=== PATIENT | male | born 1950 | race Caucasian/White ===

== ENCOUNTER 2019-12-25 10:57 | Emergency (ER) | payer OTHER, SELFPAY ==
[2019-12-25 10:58] VITALS: BP 165/73; PULSE 62; RESP 16; TEMP 36.6; O2SAT 96; BMI 25.2
--- NOTE | 2019-12-25 11:40 | RAD_ITS ---
STUDY: X-RAY CHEST REASON FOR EXAM: Male, 69 years old. cough and wheezing x 3 mos. TECHNIQUE: Single AP portable view of the chest. COMPARISON: None. FINDINGS: The lungs are clear and expanded. There is no demonstrated pleural abnormality. Normal size heart. Normal mediastinum and jj. Normal visualized pulmonary arteries. Normal visualized aortic arch and descending thoracic aorta. Normal visualized thoracic spine. Normal visualized ribs, clavicles, and shoulders. There is no demonstrated abnormality of the visualized soft tissue structures of the upper abdomen. RAD/Chest 1 View (Portable) IMPRESSION: Normal x-ray examination of the chest. Electronically Signed: Conrad Rodarte MD at 12:08 EDT Tel , Service support ,
--- NOTE | 2019-12-25 11:51 | ED.VIS.GEN ---
History of Present Illness Chief Complaint: Cold Sx Detail of Chief Complaint: Cough, nasal congestion x3 months Onset: Month(s) - Onset approximately 3 months ago Context: Gradual Onset Timing: Continuous Quality: Difficulty breathing through his nose at night and wheezing Location: Upper respiratory Current Severity: Mild Maximum Severity: Severe Worsened by: Evening Relieved by: Nothing Associated Symptoms: Wheezing, congestion, cough Narrative: Patient is a 69-year-old male who is a former smoker. He quit 12 years ago. He reports cough for approximately 3 months. He also reports nasal congestion and obstruction of his nose especially at night. He is using a nasal spray. He was prescribed medication by his physician from the [place]. He never received it. He states she believes he may have allergies. He denies fever, chills night sweats. He denies weight gain or weight loss. He does admit to smoking 1 joint per day. He denies chest discomfort. He denies leg pain, swelling or discoloration. He denies headache, visual, ocular auditory symptoms. He states he was prescribed 7 days of amoxicillin with no improvement. Prior similar symptoms: Yes Recent Illness/Hospitalization: Yes - Past Medical History (1) No significant past medical history Status: Acute Past Medical History - Allergies and Home Meds Allergies/Adverse Reactions: Allergies codeine Adverse Reaction (Verified 12/25/19 10:58) Nausea Primary Care Physician: Usha Haskins,Out of [Primary Care Provider] - Prior records reviewed: Yes Surgical History: noncontributory Lives: Alone Smoking Status: Former smoker Alcohol: Rare Drugs: Marijuana Review of Systems General: Denies: Chills, Fever, Malaise, Sweats Eyes: Denies: Visual changes - bilaterally, Blurred Vision - bilaterally ENT: Reports: Bilateral ear pain, Rhinorrhea, - - Positive postnasal drainage and obstruction at night. Denies: Sore throat Cardiovascular: Denies: Chest pain, Palpitations Respiratory: Reports: Cough, Dyspnea on exertion. Denies: Dyspnea, Sputum, Orthopnea, Paroxysmal nocturnal dyspnea Gastrointestinal: Denies: Abdominal pain, Nausea, Vomiting, Diarrhea, Melena, Hematochezia Genitourinary: Denies: Dysuria, Hematuria, Frequency Musculoskeletal: Denies: Myalgias, Arthralgias, Neck pain, Back pain, Swelling, Extremity Pain, -, - Neurological: Denies: Headache, Weakness, Numbness Endocrine: Denies: Polyuria, Polydipsia Hematologic: Denies: Easy bruising, Easy bleeding Physical Exam Vital Signs/Narrative: Vital Signs Temp Pulse Resp BP Pulse Ox 12/25/19 10:58 97.8 F 62 16 165/73 H 96 Inital Vital Signs reviewed: Yes General: Well nourished, Well developed, No Acute Distress Head: Negative for: Normocephalic, Atraumatic Eyes: Negative for: Perrl, EOMI, Pale conjunctiva, Scleral icterus ENT: No rhinorrhea, Nasal congestion. Negative for: Moist mucous membranes, TM's clear, Sinus tenderness Neck: Supple, Nontender Cardiovascular: Regular rate, Regular rhythm, No murmurs, Normal S1, Normal S2 Respiratory: No distress, Chest nontender, Wheezing, Decreased Air Movement. Negative for: CTA bilaterally Abdomen: Soft, Nontender, Nondistended, Normal bowel sounds Back: Nontender, Normal Inspection Extremities: Nontender, No edema Skin: Normal color, No rash, No Trauma. Negative for: Cyanosis, Diaphoresis, Jaundice Neurological: Alert, Oriented x3, Cranial nerves II-XII grossly intact, Normal Strength, Normal Sensation Psychological: Normal affect, Normal Mood Diagnostic/Tx/Re-eval Chest X-Ray - ED: 1 View, Read by ED Physician, Normal, Heart, Mediastinum, Bony Structures, No Acute Disease, Chronic Changes, - - Is interpreted by me at 1204. Patient has chronic changes. There is no infiltrate or effusion. Cardiac silhouette and size normal. Mediastinum is unremarkable. There is minimal degenerative changes of the osseous structures. There is a screw noted secondary to orthopedic procedure left shoulder. Patient's nasal congestion may be rebound effect from nasal spray. Because he does smoke and has had a cough for 3 months will obtain chest x-ray to rule out neoplasm, pneumonia versus other etiology. Since he does have wheezing on auscultation he was treated with albuterol 6 puffs with spacer. - Medical Decision Making Because patient is wheezing he was treated with albuterol MDI with spacer. Chest x-ray was obtained because of concern for pneumonia versus neoplasm. Differential is bronchitis, neoplasm, pneumonia Reports improvement after using MDI with spacer. Plan is to discharge with prescription for doxycycline and use of MDI. ED Disposition - Plan for ED Patient: Disposition: Home or Assisted Living Diagnosis: Chronic bronchitis with wheezing Instructions: ED Upper Resp Infec Abx Tx Prescriptions: Doxycycline 100 mg PO BID #10 cap Prescription Printed Referrals: [facility] Doctor,Out of [Primary Care Provider] - 1 Week if not improving Additional Instructions: 2 puffs of inhaler every 2-4 hours while awake for the next 2 to 3 days then every 4-6 hours as needed for cough, wheezing, shortness of breath. Take antibiotics until gone
[2019-12-25 12:13] VITALS: PULSE 71; RESP 14
== END 2019-12-25 12:39 | disposition home or self-care (01) ==
PROVIDERS: Emergency Provider Emergency Medicine
DX: J42 Unspecified chronic bronchitis (principal); Z87.891 Personal history of nicotine dependence
CPT/HCPCS: 71045; 94640; 99283

== ENCOUNTER 2020-02-22 13:35 | Emergency (ER) | payer OTHER, SELFPAY ==
[2020-02-22 13:36] VITALS: BP 144/80; PULSE 67; RESP 18; TEMP 36.6; O2SAT 97; BMI 24.5
[2020-02-22 13:45] VITALS: O2SAT 96
--- NOTE | 2020-02-22 14:06 | EKG12_ITS ---
Test Reason : Blood Pressure : / mmHG Vent. Rate : 057 BPM Atrial Rate : 057 BPM P-R Int : 234 ms QRS Dur : 132 ms QT Int : 444 ms P-R-T Axes : 000 066 -08 degrees QTc Int : 432 ms Sinus bradycardia with 1st degree A-V block Right bundle branch block T wave abnormality, consider inferior ischemia Abnormal ECG Confirmed by SANTANA CAT, ([id number]), design editor FABRICIO PARRY ([id number]) on 02/24/2020 3:19:21 PM Referred By: MALLORY Confirmed By:CYRIL DILLON MD
--- NOTE | 2020-02-22 14:06 | RAD_ITS ---
STUDY: X-RAY CHEST REASON FOR EXAM: Male, 69 years old. SOB, COUGH, CP, HTN TECHNIQUE: Frontal and lateral views of the chest. COMPARISON: December 25, 2019 FINDINGS: There is no new focal consolidation. Normal size heart. Normal mediastinum and jj. Normal visualized pulmonary arteries. Normal visualized aortic arch and descending thoracic aorta. Normal visualized thoracic spine. There are stable postsurgical changes of the left shoulder. There is stable round calcification projecting over the left shoulder joint. There is no demonstrated abnormality of the visualized soft tissue structures of the upper abdomen. RAD/Chest PA and Lateral IMPRESSION: No acute cardiopulmonary process. Electronically Signed: Bettye Haji MD at 15:28 EDT Tel , Service support ,
--- NOTE | 2020-02-22 14:07 | ED.VIS.DYS ---
History of Present Illness Chief Complaint: Shortness of Breath Informant: Patient Onset: Days Activity at onset: Exertion Quality: Dyspnea on exertion Associated Symptoms: Cough, Post-nasal drainage, - Chest Pain: None Narrative: Patient is a 69-year-old male with history of tobacco use and hypertension presenting with worsening shortness of breath. Patient states he had worsening dyspnea on exertion for the past 2 to 3 days. He states now he can even walk across his living room without start to feel short of breath. He called the [place] nurse information resources director line who recommended he come to the emergency room to be evaluated further. Patient states for the past 2 months he has had a cough that is been unchanged. He states is minimally productive. He is also had significant sinus drainage that is affecting his quality of life. He states he is not sleeping because of the drainage. He was referred to ENT however the appointment got moved back to March because of the coronavirus pandemic. He is Jj been on a course of antibiotics and is on nasal sprays but nothing seems to be helping. Patient denies any associated fever or chills, leg swelling or other symptoms. He denies any history of DVT or PE. States he otherwise is feeling well. He denies any other complaints at this time. PE Risk Factors: Negative for: Cancer, OCP + Smoking + > 35, Prior DVT or PE, Recent immobilization, Recent surgery, Recent travel Past Medical History - Allergies and Home Meds Allergies/Adverse Reactions: Allergies lisinopril Allergy (Verified 02/22/20 13:40) Laryngospasms Primary Care Physician: [facility] [Primary Care Provider] - Past Medical History: - - Hypertension, hyperlipidemia, diabetes mellitus Surgical History: noncontributory Smoking Status: Former smoker Review of Systems General: Denies: Chills, Fever, Sweats Eyes: Denies: Visual changes - bilaterally, Diplopia ENT: Reports: Rhinorrhea. Denies: Bilateral ear pain, Sore throat Cardiovascular: Denies: Chest pain, Palpitations Respiratory: Reports: Dyspnea, Cough, Dyspnea on exertion. Denies: Sputum, Orthopnea Gastrointestinal: Denies: Abdominal pain, Nausea, Vomiting, Diarrhea, Melena, Hematochezia Genitourinary: Denies: Dysuria, Hematuria, Frequency Musculoskeletal: Denies: Back pain, Extremity Pain Skin: Denies: Rash, Wounds Neurological: Denies: Headache, Weakness, Numbness Physical Exam Vital Signs/Narrative: Vital Signs Temp Pulse Resp BP Pulse Ox 02/22/20 13:36 97.8 F 67 18 144/80 H 97 Inital Vital Signs reviewed: Yes General: Well nourished, Well developed, No Acute Distress Head: Normocephalic, Atraumatic Eyes: Perrl, EOMI ENT: Moist mucous membranes, No rhinorrhea, TM's clear, - - Erythema of the posterior pharynx. Negative for: Nasal congestion Neck: Supple, Nontender Cardiovascular: Regular rate, Regular rhythm, No murmurs Respiratory: No distress, Chest nontender, Rhonchi - Left-sided. Negative for: Decreased Air Movement, Retractions, Chest tenderness Abdomen: Soft, Nontender, Nondistended, Normal bowel sounds Back: Nontender, Normal Inspection Extremities: Nontender, No edema Skin: Normal color, No rash Neurological: Alert, Oriented x3, Cranial nerves II-XII grossly intact, Normal Strength, Normal Sensation Psychological: Normal affect, Normal Mood Diagnostic/Tx/Re-eval Chest X-Ray - ED: 2 View, Read by ED Physician, Read by Radiologist, No Acute Disease Laboratory Data 02/22/20 02/22/20 02/22/20 14:25 14:25 14:25 WBC 7.8 RBC 4.20 L Hgb 13.2 Hct 40.0 MCV 95.2 H MCH 31.4 MCHC 33.0 RDW Std Deviation 43.1 RDW Coeff of Piotr 12.5 Plt Count 217 MPV 10.3 Immature Gran % (Auto) 0.500 Neut % (Auto) 59.2 Lymph % (Auto) 29.1 [place] % (Auto) 9.0 Eos % (Auto) 1.4 Baso % (Auto) 0.8 Absolute Neuts (auto) 4.6 Absolute Lymphs (auto) 2.27 Nucleated RBC % 0 D-Dimer Quant (PE/DVT) 0.48 Sodium 138 Potassium 4.2 Chloride 107 Carbon Dioxide 26.0 Anion Gap 5 BUN 24 H Creatinine 1.18 Estim Creat Clear Calc 70.63 Est GFR (MDRD) Af Amer 79 Est GFR (MDRD) Non-Af 65 BUN/Creatinine Ratio 20.3 H Glucose 174 H Calcium 10.2 H Troponin I < 0.015 B-Natriuretic Peptide 02/22/20 14:25 WBC RBC Hgb Hct MCV MCH MCHC RDW Std Deviation RDW Coeff of Piotr Plt Count MPV Immature Gran % (Auto) Neut % (Auto) Lymph % (Auto) [place] % (Auto) Eos % (Auto) Baso % (Auto) Absolute Neuts (auto) Absolute Lymphs (auto) Nucleated RBC % D-Dimer Quant (PE/DVT) Sodium Potassium Chloride Carbon Dioxide Anion Gap BUN Creatinine Estim Creat Clear Calc Est GFR (MDRD) Af Amer Est GFR (MDRD) Non-Af BUN/Creatinine Ratio Glucose Calcium Troponin I B-Natriuretic Peptide 56.0 - Rhythm Strip Rhythm Strip: Sinus Rhythm Rate: 57 Ectopy: None - EKG Initial EKG Interpretation: Sinus Rhythm, - - Sinus rhythm at a rate of 57PR interval 234QRS 132QTc 432Normal axisT wave inversions and 3, aVF, V1 and F0Qfxru bundle branch block - Medical Decision Making Patient is evaluated for shortness of breath. Was to have had some chest congestion shortness of breath that has been going on for the past few months however is been worse over the past few days. He called the [place] nursing line who was concerned he had coronavirus and sent him to the emergency room evaluation. Patient did not initially tell me this.. It was until his came in and was upset because we had not tested him for coronavirus that we realize at that was his main concern. Patient seems more preoccupied with his postnasal drip and sinus congestion that he has had for some time. Patient also thinks that he had coronavirus infection in November when he was very sick for 14 days. Patient is clinically well-appearing. His vital signs are significant for mild hypertension. Cardiopulmonary work-up is largely negative. He has a normal troponin, proBNP and an unremarkable chest x-ray. Patient does have some T wave inversions however he is not actually having any chest pain and I do not think this is acute coronary syndrome.CBC is normal as well as his d-dimer. BMP is remarkable for glucose of 174 and a calcium of 10.2 but otherwise nonspecific. Given the fact the patient not have findings consistent with acute pneumonia, PE, heart failure or other acute cardiopulmonary process I believe he is stable for outpatient follow-up. He does have some rhonchorous breath sounds and wheezing I do think a course of steroids would be helpful especially given the fact that his chest x-ray is consistent with some chronic bronchitis. Patient is instructed that he might need to adjust his sliding scale insulin over the next few days while he is on the steroids. He will also touch base with his shield operator. He is counseled that he might require further lung function testing. Because patient and his are concerned about coronavirus we will do the outpatient testing for COVID-19. Discussed with [facility] and patient was improved. Patient is comfortable with this plan. He is ambulating the emergency room and does not have any hypoxia or tachycardia. Patient is counseled on signs and symptoms requiring return to the emergency room. Patient verbalizes agreement and understand this plan. Patient discharged home in stable and improved condition. ED Disposition - Plan for ED Patient: Disposition: Home or Assisted Living Diagnosis: Dyspnea Instructions: ED Dyspnea Prescriptions: Prednisone 40 mg PO DAILY #8 tab Prescription Printed [facility] - Additional Instructions: You were tested for COVID-19 and your results should come back in 1 week or sooner. You will be contacted if positive. Work-up was otherwise normal today. You will be placed on a course of steroids to see if this helps with your symptoms. Please return the emergency room with any worsening symptoms. Please follow-up with your primary care doctor as you might need further lung testing.
--- NOTE | 2020-02-22 14:12 | NURSING ---
NO OLD EKGS
[2020-02-22 14:30] LABS: Absolute Lymphocyte Count 2.27 X10^3/uL (0.83-4.51); Absolute Neutrophil Count 4.6 X10^3/uL (2.0-7.7); Basophil# 0.06 X10^3/uL; Basophil% 0.8 % (0-1); Eosinophil# 0.11 X10^3/uL; Eosinophils% 1.4 % (0-5); Hemoglobin 13.2 g/dL (13.0-16.5); Lymphocyte # 2.27 X10^3/ul (4.0); Lymphocyte % 29.1 % (19-41); Mean Corpuscular Hgb 31.4 pg (27.0-32.0); Mean Corpuscular Volume 95.2 fL (80-94); Mean Platelet Vol. 10.3 fl (6.2-12.0); NRBC Flagged by Analyzer 0 % (0-5); Neutrophil # 4.62 X10^3/uL (2.7-7.7); Neutrophil % 59.2 % (47-70); Platelet Count 217 K/mm3 (150-450); RBC Distribution Width CV 12.5 % (11.6-14.6); RBC Distribution Width SD 43.1 fl (35.1-43.9); White Blood Count 7.8 K/mm3 (4.4-11.0)
[2020-02-22 14:50] LABS: Anion Gap 5 (5-15); BUN 24 mg/dL (7-18); BUN/Creat Ratio 20.3 RATIO (10-20); Calcium,Total 10.2 mg/dL (8.5-10.1); Chloride 107 mmol/L (98-107); Creatinine, Serum 1.18 mg/dL (0.70-1.30); EST Glomerular Filtration Rate 65 mL/min (>60); Est Glom Filt Rate - Afr Amer 79 mL/min (>60); Estimated Creatinine Clearance 70.63 ml/min; Glucose 174 mg/dL (74-106); Potassium 4.2 mmol/L (3.5-5.1); Sodium Level 138 mmol/L (136-145)
[2020-02-22 14:51] LABS: D-Dimer Quantitative (DVT/PE) 0.48 FEU/ug/m (0.27-0.49)
[2020-02-22 15:35] VITALS: BP 141/71; PULSE 60; RESP 18; O2SAT 96
--- NOTE | 2020-02-22 16:17 | ED.RN ---
THIS NURSE JUST SPOKE TO THE PT ON THE PHONE. EXTREMELY ANGRY THAT THE PT HAS NOT BEEN COVID TESTED YET. EXPRESSED HER DISPLEASURE THAT [facility] IS NOT FOLLOW[facility].
--- NOTE | 2020-02-22 16:25 | ED.RN ---
DR RILEY NOTIFIED OF THE CALLING AND HER CONCERS
--- NOTE | 2020-02-22 16:29 | ED.RN ---
Pt ambulated around room with portable pulse ox. Pt's pulse ox stayed in 100% to 94% while ambulating. Pt reports feeling like his heart is fluttery afterward. Pt was normal sinus on the monitor. Pt states he felt shaky afterward as well.
[2020-02-22] MEDS: predniSONE 20 MG Tablet 40 MG PO (16:53)
[2020-02-22 16:55] VITALS: BP 161/64; PULSE 58; RESP 12; TEMP 36.6; O2SAT 98
== END 2020-02-22 17:05 | disposition home or self-care (01) ==
PROVIDERS: Emergency Provider Emergency Medicine
DX: R06.00 Dyspnea, unspecified (principal); R05 Cough; R09.82 Postnasal drip; I10 Essential (primary) hypertension; E78.5 Hyperlipidemia, unspecified; E11.9 Type 2 diabetes mellitus without complications; Z87.891 Personal history of nicotine dependence; Z79.899 Other long term (current) drug therapy; Z79.01 Long term (current) use of anticoagulants; Z79.4 Long term (current) use of insulin
CPT/HCPCS: 71046; 80048; 83880; 84484; 85025; 85379; 87635; 93005; 99285; A4216; U0004

== ENCOUNTER 2021-03-19 08:50 | Emergency (ER) | payer OTHER, SELFPAY ==
[2021-03-19 08:52] VITALS: BP 158/75; PULSE 79; RESP 18; TEMP 36.3; O2SAT 97; BMI 24.9
[2021-03-19 08:54] VITALS: BP 158/75; PULSE 79; RESP 18; TEMP 36.3; O2SAT 97
--- NOTE | 2021-03-19 08:56 | CT_ITS ---
STUDY: CT ABDOMEN AND PELVIS WITHOUT CONTRAST REASON FOR EXAM: Male, 71 years old. Constipation. Abdominal pain. RADIATION DOSAGE (If Supplied By Facility): CTDIvol = ( 11.26 ) mGy, DLP = ( 565.37 ) mGycm TECHNIQUE: Transaxial images were obtained from the dome of the diaphragm to the symphysis pubis without oral contrast, and without intravenous contrast. Sagittal and coronal images were reconstructed. Individualized dose optimization techniques were used for this CT. COMPARISON: 04/17/2016. FINDINGS: The visualized lung bases are unremarkable. The visualized portions of the heart are within normal limits. Normal liver. Normal gallbladder and extrahepatic biliary system. Normal spleen. Normal pancreas. Normal bilateral adrenal glands. Normal right kidney. Normal left kidney. Normal visualized ureters. Normal visualized stomach. There is minimally distended fluid-filled small bowel loops without evidence of obstruction or transition point. Feces is seen throughout the colon without mass or obstruction. The appendix is visualized and appears normal. There is diffuse atherosclerotic calcification of the abdominal aorta, without a demonstrated aneurysm. Normal inferior vena cava. Normal retroperitoneum. Normal urinary bladder. The prostate normal size with central calcifications. No pelvic lymphadenopathy. No free air or free fluid is seen within the peritoneal cavity. Normal abdominal wall. There are diffuse degenerative changes of the visualized lumbar spine. CT/Abdomen/Pelvis without Cont IMPRESSION: 1. Mildly distended fluid-filled small bowel loops. Question enteritis. 2. Increased colonic feces consistent with constipation. 3. Atherosclerotic changes of the aorta. 4. Degenerative changes of the lumbar spine. Otherwise normal CT of the abdomen and pelvis. Electronically Signed: Fredy Evans DO at 10:32 EDT Tel [phone], Service support ,
[2021-03-19 09:15] LABS: Bacteria 0 SEEN /hpf (None Seen); Mucous, Urine 0 SEEN /hpf (<or=2+); Red Blood Cells-Urine 0 SEEN /hpf (0-5); Squamous Epithelial Cells - UA 0 SEEN /hpf (0-5); White Blood Cells 0 SEEN /hpf (0-5)
[2021-03-19] MEDS: morphine 8 MG/ML Syringe IV (09:21)
[2021-03-19] MEDS: 0.9% Normal Saline 1,000 ML 125 ML IV (09:21)
[2021-03-19 09:22] LABS: Color, Urine Yellow (Yellow); Glucose, Dipstick 1000 mg/dl (Normal); Ketone-Dipstick 50 mg/dl (Negative); Leukocyte Esterase-Dipstick Negative /ul (Negative); Nitrite-Dipstick Negative (Negative); Occult Blood-Urine Negative /ul (Negative); Protein-Dipstick 30 mg/dl (Negative); Urine Bilirubin Dipstick Negative (Negative); Urine Clarity Clear (Clear); Urine Urobilinogen Normal (Normal)
[2021-03-19] MEDS: Ondansetron 4 MG/2 ML Vial IV (09:22)
[2021-03-19 09:23] LABS: Absolute Lymphocyte Count 1.51 X10^3/uL (0.83-4.51); Absolute Neutrophil Count 6.9 X10^3/uL (2.0-7.7); Basophil# 0.08 X10^3/uL; Basophil% 0.9 % (0-1); Eosinophil# 0.05 X10^3/uL; Eosinophils% 0.5 % (0-5); Hematocrit 38.8 % (40-54); Hemoglobin 13.3 g/dL (13.0-16.5); Lymphocyte # 1.51 X10^3/ul (0.83-4.51); Lymphocyte % 16.1 % (19-41); Mean Corp Hgb Conc 34.3 g/dL (32-36); Mean Corpuscular Hgb 31.3 pg (27.0-32.0); Mean Corpuscular Volume 91.3 fL (80-94); Mean Platelet Vol. 10.4 fl (6.2-12.0); Monocyte# 0.81 X10^3/uL; Monocyte% 8.6 % (0-10); NRBC Flagged by Analyzer 0 % (0-5); Neutrophil # 6.88 X10^3/uL (2.7-7.7); Neutrophil % 73.5 % (47-70); Platelet Count 252 K/mm3 (150-450); RBC Distribution Width CV 11.8 % (11.6-14.6); RBC Distribution Width SD 39.8 fl (35.1-43.9); Red Blood Count 4.25 M/mm3 (4.6-6.2); White Blood Count 9.4 K/mm3 (4.4-11.0)
[2021-03-19 09:39] LABS: ALB/GLOB Ratio 1.1 RATIO (0.9-2.4); AST(SGOT) 16 U/L (15-37); Alanine Aminotransfer ALT/SGPT 24 U/L (16-61); Albumin, Serum 3.6 g/dL (3.2-5.0); Alkaline Phosphatase 89 U/L (45-117); Anion Gap 12 (5-15); BUN 20 mg/dL (7-18); BUN/Creat Ratio 14.1 RATIO (10-20); Calcium,Total 9.8 mg/dL (8.5-10.1); Chloride 102 mmol/L (98-107); Creatinine, Serum 1.42 mg/dL (0.70-1.30); EST Glomerular Filtration Rate 53 mL/min (>60); Est Glom Filt Rate - Afr Amer 64 mL/min (>60); Estimated Creatinine Clearance 57.08 ml/min; Globulin 3.4 g/dL (2.2-4.2); Glucose 309 mg/dL (74-106); Lipase 173 U/L (73-393); Potassium 3.9 mmol/L (3.5-5.1); Sodium Level 135 mmol/L (136-145)
[2021-03-19] MEDS: 0.9% Normal Saline 1,000 ML 999 ML IV (11:15)
[2021-03-19 11:26] VITALS: BP 136/70; PULSE 70; RESP 12; O2SAT 95
--- NOTE | 2021-03-19 11:36 | EX.ED.DYSGE1 ---
HPI History of Present Illness Chief Complaint: Abd Pain Narrative Narrative: Constipation. The patient presents complaining of constipation and intermittent diffuse abdominal cramps, has had this for about a week he was seen at a local facility then transferred to what he describes as a [facility] he was admitted he had bowel therapy he had bowel movements he improved he was discharged home he was told to continue bowel therapy to complete the constipation therapy he took what he feels is something called easy ago which is used prior to colonoscopy after taking that cramps in worst he did have a very hard bowel movement afterwards, indicates that the time he also had urinary retention but that resolved and the constipation resolved. Has had prior colonoscopies he denies any similar past history no other real complaints no nausea or vomiting no fever no cough no exposures to sick individuals [facility] Medical History (Updated 03/19/21 @ 11:[address] Shala Isidro MD) Diabetes Kidney disease Myocardial infarct Home Medications aspirin 81 mg PO DAILY 12/25/19 [History Last Taken Unknown] cholecalciferol (vitamin D3) 2,000 unit PO DAILY 12/25/19 [History Last Taken Unknown] digoxin 250 mcg PO X1 12/25/19 [History Last Taken Unknown] doxycycline monohydrate 100 mg PO BID #10 cap 12/25/19 [Rx Last Taken Unknown] insulin aspart U-100 0 units SUBCUT BIDCM 12/25/19 [History Last Taken Unknown] insulin glargine 35 unit SQ BREAKFAST 12/25/19 [History Last Taken Unknown] losartan 100 mg PO DAILY 12/25/19 [History Last Taken Unknown] montelukast 10 mg PO DAILY 12/25/19 [History Last Taken Unknown] multivitamin 1 ea PO DAILY 12/25/19 [History Last Taken Unknown] rosuvastatin 40 mg PO DAILY 12/25/19 [History Last Taken Unknown] trazodone 50 mg PO QHS 12/25/19 [History Last Taken Unknown] prednisone 40 mg PO DAILY #8 tab 02/22/20 [Rx Last Taken Unknown] Allergy/AdvReac Type Severity Reaction Status Date / Time lisinopril Allergy Laryngospas Verified 03/19/21 08:52 ms Social History Smoking Status: Former smoker ROS ROS ED ROS Narrative Intermittent crampy abdominal pain constipation Constitutional Constitutional ED: Reports subjective, sweats and other; Denies chills, fever(s) or weight loss Eyes Eyes: Denies blurry vision or change in vision ENT ENT ED: Denies ear pain Cardiovascular Cardiovascular: Denies chest pain or palpitations Respiratory/Chest Respiratory/Chest: Denies dyspnea Gastrointestinal Gastrointestinal: Reports abdominal pain and constipation; Denies nausea or vomiting Genitourinary Genitourinary ED: Denies dysuria or hematuria Musculoskeletal Musculoskeletal: Denies arthralgias or myalgias Integumentary Reports rash; Denies abscess Neurologic Neurologic: Denies weakness Psychiatric Psychiatric: Denies anxiety or depression Endocrine Endocrinology: Denies polydipsia or polyuria Allergic/Immunologic Allergic/Immunologic ED: Denies urticaria EXAM Physical Exam Narrative Exam Narrative: The patient's vital signs unremarkable the exam is unremarkable abdomen soft there is no rebound guarding organomegaly, rectal exam shows soft brown stool in the vault no fecal impaction see below Const Vital Signs: 03/19/21 08:52 03/19/21 08:54 03/19/21 11:26 Temperature 97.4 F L 97.4 F L Temperature Source Temporal Temporal Pulse Rate 79 79 70 Respiratory Rate 18 18 12 Blood Pressure 158/75 H 158/75 H 136/70 H Blood Pressure Mean 102 102 92 Pulse Ox 97 97 95 Oxygen Delivery Method Room Air Room Air Room Air Positive well developed General Appearance ED: well developed HEENT Reports normocephalic Negative for trauma Eyes EOMs intact bilaterally Neck supple Chest Wall inspection of chest normal Resp normal respiratory effort Cardio regular rate GI non-tender and non-distended Back/Spine Back/Spine Narrative: unremarkable Extremity normal to inspection Neuro oriented x3 and CN's II-XII intact bilaterally Sensorium / Orientation: alert Psych mental status grossly normal Skin no rashes or lesions noted MDM MDM MDM Narrative Medical decision making narrative: The patient's physical exam is unremarkable he indicates again he was admitted for this process to a [facility] he underwent bowel regimen he began having bowel movements discharged home he then ingested this bowel prep medicine which caused him to have a hard stool and have abdominal cramps ED screening evaluation with labs are all generally remarkable, CT abdomen pelvis is consistent with primarily constipation see that report no signs of obstruction questionable enteritis, Discussed this with the family discussed the findings with the patient discussed that he should not use that bowel prep medicine instead he should take MiraLAX high-fiber food follow-up as outpatient providers for colonoscopy and return for change in symptoms understands agrees this plan, I did caution him about the concept of a malignancy or some other significant process contribute to his constipation hence the need for definitive outpatient management with GI he understands Home stable Final impression intermittent abdominal cramps constipation Lab Data Labs: Laboratory Results - last 24 hr 03/19/21 03/19/21 03/19/21 09:01 09:18 09:18 WBC 9.4 RBC 4.25 L Hgb 13.3 Hct 38.8 L MCV 91.3 MCH 31.3 MCHC 34.3 RDW Std Deviation 39.8 RDW Coeff of Piotr 11.8 Plt Count 252 MPV 10.4 Immature Gran % (Auto) 0.400 Neut % (Auto) 73.5 H Lymph % (Auto) 16.1 L Mccone % (Auto) 8.6 Eos % (Auto) 0.5 Baso % (Auto) 0.9 Absolute Neuts (auto) 6.9 Absolute Lymphs (auto) 1.51 Nucleated RBC % 0 Sodium 135 L Potassium 3.9 Chloride 102 Carbon Dioxide 21.0 Anion Gap 12 BUN 20 H Creatinine 1.42 H Estim Creat Clear Calc 57.08 Est GFR (MDRD) Af Amer 64 Est GFR (MDRD) Non-Af 53 L BUN/Creatinine Ratio 14.1 Glucose 309 H Calcium 9.8 Total Bilirubin 0.60 AST 16 ALT 24 Alkaline Phosphatase 89 Total Protein 7.0 Albumin 3.6 Globulin 3.4 Albumin/Globulin Ratio 1.1 Lipase 173 Urine Color Yellow Urine Clarity Clear Urine pH 7.0 Ur Specific [place] 1.010 Urine Protein 30 H Urine Glucose (UA) 1000 H Urine Ketones 50 H Urine Occult Blood Negative Urine Nitrite Negative Urine Bilirubin Negative Urine Urobilinogen Normal Ur Leukocyte Esterase Negative Urine RBC 0 SEEN Urine WBC 0 SEEN Ur Squamous Epith Cells 0 SEEN Urine Bacteria 0 SEEN Urine Mucus 0 SEEN Radiography Diagnostic Testing: Radiology Impression Abdomen/Pelvis CT 03/19/21 08:56 IMPRESSION: 1. Mildly distended fluid-filled small bowel loops. Question enteritis. 2. Increased colonic feces consistent with constipation. 3. Atherosclerotic changes of the aorta. 4. Degenerative changes of the lumbar spine. Otherwise normal CT of the abdomen and pelvis. Electronically Signed: Fredy Evans DO at 10:32 EDT Tel [phone], Service support , Discharge Plan Triage Chief Complaint: Abd Pain ED Provider: Shala Isidro Dx/Rx/DC Orders Clinical Impression: Abdominal pain, Constipation Instructions: ED Unknown Causes of Abdominal ... Prescriptions: No Action multivitamin 1 EACH tablet 1 ea PO DAILY RF: 0 insulin glargine 100 UNIT/ML solution 35 unit SQ BREAKFAST RF: 0 trazodone 50 MG tablet 50 mg PO QHS RF: 0 digoxin 250 MCG tablet 250 mcg PO X1 RF: 0 aspirin 81 MG tablet,chewable 81 mg PO DAILY RF: 0 montelukast 10 MG tablet 10 mg PO DAILY RF: 0 losartan 100 MG tablet 100 mg PO DAILY RF: 0 insulin aspart U-100 100 UNITS/ML insulin pen 0 units subcut BIDCM RF: 0 rosuvastatin 40 MG tablet 40 mg PO DAILY RF: 0 cholecalciferol (vitamin D3) 2,000 UNIT tablet,chewable 2,000 unit PO DAILY RF: 0 doxycycline monohydrate 100 MG capsule 100 mg PO BID Qty: 10 RF: 0 prednisone 20 MG tablet 40 mg PO DAILY Qty: 8 RF: 0 [place] [facility] [place] [Primary Care Provider] - Activity Restrictions/Additional Instructions: Use MiraLAX for constipation drinking 8 ounce glass of water every for 6 to 8 hours follow-up with your outpatient providers
[2021-03-19 12:29] VITALS: BP 151/78; PULSE 67; RESP 15; O2SAT 98
--- NOTE | 2021-03-19 12:30 | ED.RN ---
extended education provided to patient and . conversation about expectations had with er dr. burns expressed understanding and thanked me for my time. yumiko collzao rn [phone]
== END 2021-03-19 12:30 | disposition home or self-care (01) ==
LOC: ED 09:51
PROVIDERS: Emergency Provider Emergency Medicine
DX: R10.9 Unspecified abdominal pain (principal); K59.00 Constipation, unspecified; Z87.891 Personal history of nicotine dependence
CPT/HCPCS: 74176; 80053; 81001; 83690; 85025; 96361; 96374; 96375; 99283; J7030; J2405